=== PATIENT | female | born 1945 | race Caucasian/White ===

== ENCOUNTER → 2017-04-21 | Outpatient (CLI) | payer MEDICARE ==
[~2017-04-21] MED LIST: ANTACID650 MG PO; CALCITRIOL0.25 MCG PO; CHOLESTEROL; CORICIDIN COLD1 TAB PO; DAKIN'S MODIF1000 ML TOP; DIABETA5 M1 PO; DIABETES PILL; GERITOL COMPLET1 TA1 PO; GLUCOPHAGE850 MG PO; HTN MED; HUMALOG MIX 75/23 ML SUBQ; HUMALOG100 U/ML SUBQ; HYDRALAZINE HCL25 MG PO; HYDROCHLOROTHIA25 MG PO; LASIX PO; LEVAQUIN250 MG PO; LEVEMIR SUBQ; LORTAB 10-5001 EACH PO; LOSARTAN POTASS50 MG PO; METFORMIN HCL850 MG PO; METOPROLOL TAR25 MG DOB; METOPROLOL TAR25 MG PO; MICRONASE5 M2 PO; MIRALAX17 GM PO; NOVOLOG100 U/ML SUBQ; OXYCODONE HCL5 M1 PO; PRAVASTATIN SOD40 MG PO; SANTYL15 G1 TOP; ZOFRAN PO; ZYVOX600 MG PO
[2017-04-21 13:38] LABS: BASOPHIL% 0.4 % (0-2.5); EOSINOPHIL# 0.3 X10e3 (0-0.7); HEMATOCRIT 28.1 % (35.0-45.0); HEMOGLOBIN 9.4 gm/dL (12.0-16.0); LYMPHOCYTE# 1.4 X10e3 (1.0-3.5); LYMPHOCYTE% 15.4 % (17.0-45.0); MEAN CELL VOLUME 92.1 FL (83-96); MEAN CORPUSCULAR HEMOGLOBIN 30.8 PG (28-34); MEAN CORPUSCULAR HGB CONC 33.5 g/dL (30-36); MEAN PLATELET VOLUME 7.1 FL (6.5-11.5); MONOCYTE# 0.7 X10e3 (0-1.0); MONOCYTE% 8.1 % (3.0-12.0); NEUTROPHIL# 6.7 X10e3 (1.5-7.1); NEUTROPHIL% 73.1 % (40-75); PLATELET COUNT 326 X10e3 (140-420); RED BLOOD COUNT 3.05 X10e (3.90-5.30); RED CELL DISTRIBUTION WIDTH 12.7 % (11.0-15.5); WHITE BLOOD COUNT 9.2 X10e3 (4.0-10.5)
[2017-04-21 13:52] LABS: DIFF IND NO
[2017-04-21 14:30] LABS: ALBUMIN SERUM 3.6 g/dL (3.5-5.0); BILIRUBIN,TOTAL 0.3 mg/dL (0.2-2.0); BUN/CREATININE RATIO 21.42; CALCIUM SERUM 8.5 mg/dL (8.4-10.2); CREATININE SERUM 2.8 mg/dL (0.6-1.4); GLOM FILT RATE Estimated 16.5 mL/min (>60); POTASSIUM 5.2 mmol/L (3.5-5.1); PROTEIN TOTAL SERUM 7.4 g/dL (6.0-8.3)
[2017-04-21 14:53] LABS: URINE APPEARANCE CLEAR; URINE BILIRUBIN NEG (NEG); URINE BLOOD NEG (NEG); URINE COLOR YELLOW; URINE GLUCOSE 50 MG/DL (NORM); URINE KETONE NEG (NEG); URINE LEUKOCYTE ESTERASE NEG (NEG); URINE NITRATE NEG (NEG); URINE PROTEIN 2+ (NEG); URINE SPECIFIC GRAVITY 1.015 (1.003-1.035); URINE UROBILINOGEN 0.2 MG/DL (NORM)
[2017-04-21 14:58] LABS: MICRO INDICATED? YES
[2017-04-21 15:17] LABS: URINE BACTERIA NEG (NEG); URINE RBC 0-2 /[HPF] (0-2); URINE SQUAMOUS EPITHELIAL CELL OCCAS /[HPF]; URINE WBC 0-2 /[HPF] (0-5)
[2017-04-21 17:03] LABS: CREATININE,RANDOM URINE 25 mg/dL; TOTAL PROTEIN,RANDOM URINE 109 mg/dl (<10)
== END | disposition home or self-care (01) ==
LOC: SLAB 13:22
PROVIDERS: Internal Medicine Nephrology
DX: N18.3 Chronic kidney disease, stage 3 (moderate) (principal)
CPT/HCPCS: 36415; 80053; 81003; 82570; 84156; 85025

== ENCOUNTER → 2017-06-16 | Outpatient (CLI) | payer MEDICARE ==
[2017-06-16 11:16] LABS: BASOPHIL# 0.1 X10e3 (0-0.3); BASOPHIL% 0.9 % (0-2.5); EOSINOPHIL# 0.3 X10e3 (0-0.7); EOSINOPHIL% 3.5 % (0.0-7.0); HEMOGLOBIN 10.3 gm/dL (12.0-16.0); LYMPHOCYTE# 1.7 X10e3 (1.0-3.5); LYMPHOCYTE% 20.5 % (17.0-45.0); MEAN CELL VOLUME 88.7 FL (83-96); MEAN CORPUSCULAR HEMOGLOBIN 29.5 PG (28-34); MEAN CORPUSCULAR HGB CONC 33.3 g/dL (30-36); MEAN PLATELET VOLUME 7.9 FL (6.5-11.5); MONOCYTE# 0.7 X10e3 (0-1.0); MONOCYTE% 8.7 % (3.0-12.0); NEUTROPHIL# 5.5 X10e3 (1.5-7.1); NEUTROPHIL% 66.4 % (40-75); PLATELET COUNT 249 X10e3 (140-420); RED CELL DISTRIBUTION WIDTH 12.8 % (11.0-15.5); WHITE BLOOD COUNT 8.3 X10e3 (4.0-10.5)
[2017-06-16 11:18] LABS: BUN/CREATININE RATIO 16.76; CALCIUM SERUM 9.1 mg/dL (8.4-10.2); CREATININE SERUM 3.4 mg/dL (0.6-1.4); PHOSPHOROUS 5.2 mg/dL (2.5-4.6); POTASSIUM 4.6 mmol/L (3.5-5.1)
[2017-06-16 11:37] LABS: DIFF IND NO
[2017-06-16 12:31] LABS: URINE APPEARANCE CLEAR; URINE BILIRUBIN NEG (NEG); URINE BLOOD TRACE-INTACT (NEG); URINE COLOR YELLOW; URINE KETONE NEG (NEG); URINE LEUKOCYTE ESTERASE NEG (NEG); URINE NITRATE NEG (NEG); URINE PROTEIN 2+ (NEG); URINE UROBILINOGEN 0.2 MG/DL (NORM)
[2017-06-16 12:47] LABS: URINE GLUCOSE 50 MG/DL (NORM)
[2017-06-16 12:48] LABS: MICRO INDICATED? YES
[2017-06-16 12:49] LABS: URINE BACTERIA NEG (NEG); URINE RBC 0-2 /[HPF] (0-2); URINE SQUAMOUS EPITHELIAL CELL OCCAS /[HPF]; URINE WBC 0-2 /[HPF] (0-5)
[2017-06-16 16:01] LABS: CREATININE,RANDOM URINE 34 mg/dL; TOTAL PROTEIN,RANDOM URINE 88 mg/dl (<10)
[2017-06-19 16:15] LABS: CALCIUM (PTHINTACT) 9.9 mg/dL (8.6-10.4)
== END | disposition home or self-care (01) ==
LOC: SLAB 10:31
PROVIDERS: Internal Medicine Nephrology
DX: N18.3 Chronic kidney disease, stage 3 (moderate) (principal)
CPT/HCPCS: 36415; 80048; 81003; 82310; 82570; 83540; 83550; 83970; 84100; 84156; 85025